=== PATIENT | male | born 1975 | race African-American/Black ===

== ENCOUNTER 2023-11-16 22:07 | Emergency (ER) | payer MEDICAID ==
[~2023-11-16] VITALS: Ht 167.6 cm; Wt 82.0 kg
[~2023-11-16 22:07] MED LIST: KEPP500 PO
[2023-11-16 22:09] VITALS: O2SAT 100
[2023-11-16] MEDS: SODIUM CHLORIDE 0.9% 1,000 ML IV NR (23:02)
[2023-11-16] MEDS: LEVETIRACETAM 500MG PREMIX 100 ML IV NR (23:02)
[2023-11-16] MEDS: LORAZEPAM 2MG/ML INJ IV ONE (23:02)
[2023-11-16 23:41] LABS: BASOPHILS % 0.4 % (0.0-2.0); DIFFERENTIAL COMMENT 0; HEMATOCRIT. 41.8 % (42.0-52.0); HEMOGLOBIN. 13.4 g/dL (14.0-18.0); LYMPHOCYTES % 11.6 % (20.0-50.0); MEAN CORPUSCULAR HEMOGLOBIN 24.8 pg (28.0-32.0); MEAN CORPUSCULAR VOLUME 77.5 fL (80.0-94.0); MEAN PLATELET VOLUME 8.1 fl (7.4-10.4); MONOCYTES % 5.5 % (2.0-8.0); NEUTROPHILS % 82.5 % (40.0-76.0); PLATELET 257 x1000/uL (130-400); RED BLOOD CELL COUNT 5.39 mill/uL (4.7-6.1); RED CELL DISTRIBUTION WIDTH 14.9 % (11.6-14.6); WHITE BLOOD COUNT 8.1 x1000/uL (4.5-11.0)
[2023-11-16 23:53] LABS: CLARITY URINE CLEAR (CLEAR); COLOR URINE YELLOW (YELLOW); GLUCOSE URINE NEGATIVE (NEGATIVE); KETONES URINE NEGATIVE (NEGATIVE); LEUKOCYTE ESTERASE URINE NEGATIVE (NEGATIVE); NITRITE URINE NEGATIVE (NEGATIVE); OCCULT BLOOD URINE 1+ (NEGATIVE); PH URINE 5.5 (4.5-8.0); PROTEIN URINE 2+ (NEGATIVE); SPECIFIC GRAVITY URINE 1.019 (1.005-1.030); UROBILINOGEN URINE 0.2 E.U./dL (0.2-1.0)
[2023-11-17] LABS: CALCIUM 9.3 mg/dL (8.7-10.4); CARBON DIOXIDE 18 mEq/L (21-32)
[2023-11-17 00:05] LABS: CREATININE 1.2 mg/dL (0.6-1.3); GLUCOSE 107 mg/dL (70-105); UREA NITROGEN BLOOD 15 mg/dL (9-23)
[2023-11-17 00:08] LABS: *AMPHETAMINES SCREEN URINE NEGATIVE (NEGATIVE); *BARBITURATES SCREEN URINE NEGATIVE (NEGATIVE); *BENZODIAZEPINES SCREEN URINE NEGATIVE (NEGATIVE); *COCAINE SCREEN URINE NEGATIVE (NEGATIVE); METHADONE URINE SCREEN NEGATIVE (NEGATIVE)
[2023-11-17 00:09] LABS: CANNABINOID URINE SCREEN PRESUMPTIVE POSITIVE (NEGATIVE); ECSTASY MDMA SCREEN URINE NEGATIVE (NEGATIVE); OPIATES URINE SCREEN NEGATIVE (NEGATIVE); PHENCYCLIDINE URINE SCREEN NEGATIVE (NEGATIVE)
[2023-11-17 00:35] LABS: ETHANOL BLOOD < 10 mg/dL (<10)
[2023-11-17 00:48] LABS: CHLORIDE 102 mEq/L (98-107); SODIUM 138 mEq/L (136-145)
[2023-11-17 01:45] LABS: RBC URINE 0-2 /hpf (0-2); SQUAMOUS EPITHELIAL CELL URINE NONE SEEN /lpf (RARE/1+); WBC URINE 0-2 /hpf (0-2)
[2023-11-17 01:46] LABS: BACTERIA URINE NONE SEEN
[2023-11-17] MEDS: ACETAMINOPHEN 325MG TABLET PO ONE (03:30)
[2023-11-17 13:42] VITALS: BP 121/79; PULSE 82; RESP 17; TEMP 36.61404; O2SAT 100
== END 2023-11-17 13:44 | disposition left against medical advice (07) ==
LOC: ER 22:07 → EDBEDREQ 11-17 04:23 → EDBEDREQTM 11-17 04:23 → ER 11-17 13:44
DX: R56.9 Unspecified convulsions (principal); F10.20 Alcohol dependence, uncomplicated; Y90.0 Blood alcohol level of less than 20 mg/100 ml
CPT/HCPCS: 80305; 80048; 81003; 80320; 82962; 85025; 36415; 96365; 96366; 96375; 99285; J1953; J2060; G0480

== ENCOUNTER 2024-01-09 22:31 | Emergency (ER) | payer MEDICAID ==
[~2024-01-09] VITALS: Ht 182.9 cm; Wt 81.0 kg
[2024-01-09 22:37] VITALS: O2SAT 98
[2024-01-09] MEDS: LEVETIRACETAM 1000MG PREMIX 100 ML IV ONE (23:39)
[2024-01-10] MEDS ORDERED: KEPP500 MT (00:28)
[2024-01-10 00:49] VITALS: BP 128/85; PULSE 98; RESP 14; TEMP 36.78072; O2SAT 98
== END 2024-01-10 01:23 | disposition home or self-care (01) ==
LOC: ER 22:31
DX: G40.909 Epilepsy, unspecified, not intractable, without status epilepticus (principal); F17.210 Nicotine dependence, cigarettes, uncomplicated; F12.10 Cannabis abuse, uncomplicated
CPT/HCPCS: 99284; 96365; J1953

== ENCOUNTER 2024-03-24 21:31 | Emergency (ER) | payer MEDICAID, OTHER ==
[~2024-03-24] VITALS: Ht 182.9 cm; Wt 100.0 kg
[~2024-03-24 21:31] MED LIST changes: +KEPP500 MT
[2024-03-24 21:32] VITALS: O2SAT 98
[2024-03-24] MEDS: LEVETIRACETAM 1000MG PREMIX 100 ML IV ONE (22:18)
[2024-03-25 00:01] VITALS: BP 102/80; PULSE 82; RESP 16; TEMP 36.8; O2SAT 100
== END 2024-03-25 00:02 | disposition home or self-care (01) ==
LOC: ER 21:31
DX: R56.9 Unspecified convulsions (principal); F17.200 Nicotine dependence, unspecified, uncomplicated; F10.90 Alcohol use, unspecified, uncomplicated; F12.90 Cannabis use, unspecified, uncomplicated; Y90.9 Presence of alcohol in blood, level not specified
CPT/HCPCS: 99284; 96365; J1953

== ENCOUNTER 2024-10-05 12:29 | Emergency (ER) | payer OTHER ==
[~2024-10-05] VITALS: Ht 177.8 cm; Wt 90.0 kg
[2024-10-05] MEDS: LEVETIRACETAM 1000MG PREMIX 100 ML IV ONE ×2 (13:15→13:23)
[2024-10-05] MEDS: KETOROLAC 15MG/ML VIAL IV ONE (13:20)
[2024-10-05] MEDS: LORAZEPAM 2MG/ML UD SYRINGE IV NR (13:23)
[2024-10-05] MEDS: SODIUM CHLORIDE 0.9% 1,000 ML IV ONE ×2 (13:23→15:12)
[2024-10-05] MEDS: LORAZEPAM 1MG TABLET PO ONE (13:30)
[2024-10-05 14:04] VITALS: O2SAT 98
[2024-10-05] MEDS: MIDAZOLAM HCL 2 MG/2 ML VIAL IV ONE (14:04)
[2024-10-05 14:27] LABS: BASOPHILS % 0.6 % (0.0-2.0); EOSINOPHILS % 0.0 % (0.0-5.0); HEMATOCRIT. 46.4 % (42.0-52.0); HEMOGLOBIN. 14.3 g/dL (14.0-18.0); LYMPHOCYTES % 13.4 % (20.0-50.0); MEAN PLATELET VOLUME 8.9 fl (7.4-10.4); MONOCYTES % 6.3 % (2.0-8.0); NEUTROPHILS % 79.7 % (40.0-76.0); PLATELET 311 x1000/uL (130-400); RED BLOOD CELL COUNT 5.76 mill/uL (4.7-6.1); RED CELL DISTRIBUTION WIDTH 16.4 % (11.6-14.6)
[2024-10-05] MEDS: LEVETIRACETAM 500MG TABLET PO ONE (14:30)
[2024-10-05 14:42] LABS: CREATININE 1.3 mg/dL (0.6-1.3); UREA NITROGEN BLOOD 15 mg/dL (9-23)
[2024-10-05 14:43] LABS: ETHANOL BLOOD < 10 mg/dL (<10)
[2024-10-05 14:44] LABS: ASPARTATE AMINOTRANSFERASE 88 IU/L (<34); BILIRUBIN DIRECT 0.1 mg/dL (<=3.0)
[2024-10-05 14:45] LABS: BILIRUBIN TOTAL 0.4 mg/dL (0.1-1.0); PROTEIN TOTAL 8.6 g/dL (6.0-8.3)
[2024-10-05 17:39] VITALS: BP 134/89; PULSE 100; RESP 18; TEMP 37.1; O2SAT 97
== END 2024-10-05 18:00 | disposition short-term general hospital (02) ==
LOC: ER 13:04 → CMPBEDREQ 10-07 08:30
DX: R56.9 Unspecified convulsions (principal); F10.90 Alcohol use, unspecified, uncomplicated; F12.90 Cannabis use, unspecified, uncomplicated; Z79.899 Other long term (current) drug therapy
CPT/HCPCS: 80076; 80048; 80320; 85025; 36415; 70450; 96374; 99285; J1953; J2060; J2250; J7030; A4606; J1885; G0480

== ENCOUNTER 2024-11-28 15:25 | Emergency (ER) | payer OTHER ==
[~2024-11-28] VITALS: Ht 177.8 cm; Wt 89.0 kg
[2024-11-28 15:29] VITALS: O2SAT 98
[2024-11-28] MEDS ORDERED: LEVE750T4 MT (16:02)
[2024-11-28] MEDS: LEVETIRACETAM 500MG PREMIX 100 ML IV STA (16:23)
[2024-11-28 16:48] VITALS: BP 116/85; PULSE 80; RESP 18; TEMP 37; O2SAT 98
== END 2024-11-28 16:55 | disposition home or self-care (01) ==
LOC: ER 15:25
DX: G40.909 Epilepsy, unspecified, not intractable, without status epilepticus (principal); Z59.01 Sheltered homelessness; Z91.148 Patient's other noncompliance with medication regimen for other reason
CPT/HCPCS: 96374; 99283; J1953; Z7610; A4606